=== PATIENT | male | born 1990 | race Caucasian/White ===

== ENCOUNTER 2017-08-31 01:38 | Emergency (ER) | payer BC, OTHER ==
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
[2017-08-31] MEDS ORDERED: Amoxicillin/Clavulanate K 500-125 MG Tab PO ONE (03:17)
--- NOTE | 2017-08-31 07:55 | CT ---
CT facial bones Technique: Multiple axial sections through the facial bones were obtained. Reconstructed coronal and sagittal images were reviewed. Findings: Fracture is seen within the medial left orbital wall with displacement of fracture fragments into the ethmoid sinus. Minimally displaced fracture is seen within the inferior left orbital floor. Soft tissue swelling is noted around the left orbit. No additional facial bone fracture is identified. Minimal mucosal thickening is seen within the right maxillary sinus. Fluid which likely represents blood is seen within the left maxillary sinus. Mucosal thickening seen within the left ethmoid sinuses which likely represents blood. Impression: 1. Displaced medial left orbital wall fracture with minimally displaced inferior left orbital floor fracture. 2. Soft tissue swelling and other findings. Diagnostic code #3 Agree with preliminary report issued by [facility] (preliminary [facility] report dictated on 08/31/17, 4:04 AM Central Time)
[2017-08-31] MEDS ORDERED: Amoxicillin/Clavulanate K 500-125 MG Tab PO SCH (09:00)
== END 2017-08-31 03:30 | disposition home or self-care (01) ==
LOC: JD.ED 01:38
DX: S02.32XA Fracture of orbital floor, left side, initial encounter for closed fracture (principal); Y04.2XXA Assault by strike against or bumped into by another person, initial encounter
CPT/HCPCS: 70486; 99284; A9270; 99283